=== PATIENT | female | born 1990 | race Caucasian/White ===

== ENCOUNTER → 2016-09-13 | Outpatient (CLI) | payer OTHER ==
[~2016-09-13] MED LIST: ALBUAER2 INH; DSWCR15 TOP; ETONMIS VAGRING; FLUT0.15 NAE; HYDR25CA PO; IPRASOL4 INH; LEVO-371 PO; OXYC-57 PO; PRD/1 PO; PRLSR20 PO; SULF1TAB92 PO; SYMIN/8045 INH; TRIA0.1O12 TOP; ZNTT/150 PO
[2016-09-13 18:36] LABS: HEMATOCRIT 38.6 % (37-47); MEAN CORPUSCULAR HEMOGLOBIN 30.5 pg (25-34); MEAN CORPUSCULAR HGB CONC 33.9 g/dl (32-36); MEAN PLATELET VOLUME 10.7 fL (7.4-10.4); PLATELET COUNT 378 K/uL (130-400); RED BLOOD COUNT 4.29 M/uL (4.2-5.4); WHITE BLOOD COUNT 6.87 K/uL (4.8-10.8)
[2016-09-13 18:50] LABS: POTASSIUM 3.8 mmol/L (3.5-5.1)
[2016-09-13 19:15] LABS: BASO % 0.4 %; BASO ABS # 0.03 K/uL (0-0.2); COMPLETE YES; EOS % 7.7 %; IG% 0.1 %; LYMPH % 51.1 %; LYMPH ABS # 3.51 K/uL (1.2-3.4); MONO % 9.3 %; NEUT % 31.4 %
== END | disposition home or self-care (01) ==
LOC: C.LAB 16:33
PROVIDERS: ATTEND Internal Medicine Pulmonary Disease
DX: J45.909 Unspecified asthma, uncomplicated (principal)

== ENCOUNTER → 2016-10-31 | Outpatient (CLI) | payer OTHER ==
--- NOTE | 2016-10-31 18:02 | DIAGNOSTIC IMAGING REPORT ---
SINUSES MIN 3 VIEWS ROUTINE CLINICAL HISTORY: J34.2,J32.1,J32.0,J31.0,J32.9,J32.3 chronic sinusitis COMPARISON STUDY: No previous studies for comparison. FINDINGS: There are bilateral maxillary sinus air-fluid levels. There is a right frontal sinus air-fluid level. Mucosal disease is also suspected within the ethmoid sinuses. IMPRESSION: Sinus disease with bilateral maxillary sinus and right frontal sinus air-fluid levels. Electronically signed by: Kory Olsen M.D. 10/31/2016 6:01 PM Dictated Date/Time: 10/31/2016 6:00 PM
== END | disposition home or self-care (01) ==
LOC: C.RAD 17:01
PROVIDERS: ATTEND Internal Medicine Pulmonary Disease
DX: J34.2 Deviated nasal septum (principal); J31.0 Chronic rhinitis; J32.0 Chronic maxillary sinusitis; J32.1 Chronic frontal sinusitis; J32.3 Chronic sphenoidal sinusitis; J32.9 Chronic sinusitis, unspecified

== ENCOUNTER → 2016-12-07 | Day surgery (SDC) | payer OTHER ==
[2016-11-30 08:01] VITALS: Ht 157.5 cm; Wt 50.0 kg
[~2016-12-07] VITALS: Ht 157.5 cm; Wt 50.0 kg
[~2016-12-07] MED LIST changes: +ALBUTEROL 0.083% NEBU SOLN 3 ML VIAL INH PRN; +ATROPINE SULFATE 0.1 MG/ML 5ML SYR IV PRN; +CEFAZOLIN 1000MG/55 ML D5W IV SCH; +DEXAMETHASONE SOD INJ 4 MG/ML VIAL ONE; -DSWCR15 TOP; -ETONMIS VAGRING; +EpHEDrine SULFATE INJ 50 MG/ML AMP IV PRN; +EpINEphrine INJ 1MG/ML AMP 1 MG/ML AMP ONE; +FENTANYL CITRATE INJ 50 MCG/1 ML 2 ML VIAL IV PRN; +FENTANYL CITRATE INJ 50 MCG/1 ML 2 ML VIAL ONE; +GLYCOPYRROLATE INJ 0.2 MG/ML VIAL ONE; -IPRASOL4 INH; +LACTATED RINGER'S 1000ML 1,000 ML IV SCH; -LEVO-371 PO; +LIDO 2%/EPINEPHRINE 1:100000 20 ML VIAL INFIL ONE; +LIDOCAINE 4% MPF SOAK 5 ML = 1 DOSE TOP ONE; +LIDOCAINE HCL 2% 2 ML VIAL (20MG/ML) ONE; +MIDAZOLAM HCL 1 MG/ML 2ML VIAL ONE; +NEOSTIGMINE METHYLSULFATE 5 MG/5 ML SYR ONE; +ONDANSETRON INJ 2 MG/ML 2 ML VIAL IV PRN; +ONDANSETRON INJ 2 MG/ML 2 ML VIAL ONE; +OXYCODONE/ACETAMINOPHEN 5-325 TAB PO PRN; +OXYMETAZOLINE HCL 0.05% NA SPR 15 ML BTL SCH; -PRD/1 PO; +PROMETHAZINE HCL INJ 6.25 MG in SODIUM CHLORIDE 0.9% 50ML 50 ML IV PRN; +PROPOFOL IV EMULSION 10 MG/ML 20 ML VIAL IV ONE; +SODIUM CHLORIDE 0.9% 1000ML 1,000 ML IV SCH; +SUCCINYLCHOLINE CHLORIDE 20 MG/ML 10 ML VIAL IV ONE; -SULF1TAB92 PO; -TRIA0.1O12 TOP
--- NOTE | 2016-12-07 00:26 | HISTORY & PHYSICAL EXAMINATION ---
DATE OF ADMISSION: 12/07/2016 DIAGNOSIS: Chronic sinusitis. HISTORY OF PRESENT ILLNESS: This 26-year-old lady presented with significant long history of recurrent and chronic sinusitis all winter because of the persistent symptoms and air-fluid level in the frontal, maxillary, and sphenoid sinuses. After failure to respond to antibiotic treatment, the patient requested definitive treatment. PAST MEDICAL HISTORY: Medical problems, asthma and migraine headaches. PREVIOUS SURGERIES: Tonsillectomy and previous sinus surgery. ALLERGIES: PROPYLENE GLYCOL CAUSES A RASH. MEDICATIONS: Include albuterol, Symbicort, hydroxyzine, omeprazole, ranitidine, DuoNeb, Xolair and Flonase. REVIEW OF SYSTEMS: Positive for acid reflux and asthma. PHYSICAL EXAMINATION: GENERAL: WN, WD female. VITAL SIGNS: 5 feet 2 inches, 115 pounds. HEAD: Normocephalic. EYES: Normal. EARS: Tympanic membranes intact. NOSE: Nasal passages show swollen nasal turbinates and some mucopurulent drainage. THROAT: Oropharynx normal. NECK: Supple. HEART: RRR. LUNGS: Clear. ABDOMEN: Soft. GENITOURINARY: Deferred. EXTREMITIES: Full range of motion. IMPRESSION: Chronic sinusitis. PLAN: For endoscopic sinus surgery. IVAD
--- NOTE | 2016-12-07 07:36 | History & Physical Bridge Note ---
H&P Re-Evaluation Bridge Note: I have examined the patient, reviewed the History & Physical and in the interval since the performance of the History & Physical I have noted the following changes of clinical significance: No changes noted
--- NOTE | 2016-12-07 09:08 | Discharge Instructions-SurgCtr ---
Discharge Instructions Date of Service Dec 07, 2016. Visit Reason for Visit: Chronic Sinusitis Discharge Discharge Diagnosis / Problem: same Discharge Goals Goal(s): Improve disease control Activity Recommendations Activity Limitations: resume your previous activity Anesthesia . Post Anesthesia Instructions: If you have had General Anesthesia or IV Sedation: * Do not drive today. * Resume driving when surgeon permits. * Do not make important decisions or sign legal documents today. * Call surgeon for: 1. Temperature elevations greater than 101 degrees F. 2. Uncontrollable pain. 3. Excessive bleeding. 4. Persistent nausea and vomiting. 5. Medication intolerance (nausea, vomiting or rash). * For nausea and vomiting use only clear liquids such as: tea, soda, bouillon until nausea subsides, then gradually increase diet as tolerated. * If you have any concerns or questions, call your surgeon's office. If physician is unavailable and it is an emergency, call 911 or go to the nearest emergency room. . Instructions / Follow-Up Instructions / Follow-Up ACTIVITY RECOMMENDATIONS: * Being up and around is good, but no strenuous activity, heavy lifting or physical exertion for one week. * Keep your head elevated 30 degrees when lying down or sleeping. * Do not blow your nose for 48 hours, sniff back instead. * Avoid hot showers. OVER THE COUNTER MEDICATIONS: * You may use Tylenol * Avoid aspirin or aspirin containing products, e.g. as they may increase bleeding. SPECIAL CARE INSTRUCTIONS: * Expect to have bloody drainage from your nose and/or down your throat for one to three days. Change drip pad as needed. * Begin irrigating your nose with saline solution today, at least six to ten times per day and sniff back to help remove old clots or crust. * You may experience nasal and facial congestion, pain and pressure, this is normal. * Please call with any significant and/or progressive pain, redness, swelling around the eyes, visual changes, fever of 101.5 degrees F, active bleeding or any problems or concerns. * If active bleeding occurs, spray the nose three times at one minute intervals with Afrin spray and call or cell phone: . If unable to reach the doctor, go to the nearest Emergency Department. Special Diet: * Avoid extremely hot fluids. FOLLOW UP VISIT: Follow-up Visit with Dr. Hampton If not already scheduled, please call to schedule. Diet Recommendations Home Diet: resume previous diet Pending Studies Studies pending at discharge: no Medical Emergencies . Who to Call and When: Medical Emergencies: If at any time you feel your situation is an emergency, please call 911 immediately. . Non-Emergent Contact Non-Emergency issues call your: Primary Care Provider . . "Provider Documentation" section prepared by Priti Hampton. [place] Drug Monitoring Program Search Results: no issues identified
[2016-12-07 12:04] VITALS: TEMP 37.2
--- NOTE | 2016-12-07 12:19 | OPERATIVE REPORT ---
DATE OF OPERATION: 12/07/2016 PREOPERATIVE DIAGNOSIS: Chronic sinusitis. POSTOPERATIVE DIAGNOSIS: Same plus polyposis. PROCEDURE: Right and left frontal, right and left sphenoid, right and left total ethmoid and right and left maxillary sinus antrostomy. SURGEON: Dr. Hampton. ANESTHESIA: General endotracheal. COMPLICATIONS: None. BLOOD LOSS: 60 mL. HISTORY OF PRESENT ILLNESS: This 26-year-old lady underwent endoscopic sinus surgery with septoplasty five years ago, but her symptoms continues to get worse, also her asthma has become progressively worse due to the recurrent and chronic sinus infections. OPERATION AND FINDINGS: DESCRIPTION OF PROCEDURE: The patient brought to the operating room and placed in supine position. General endotracheal anesthesia was induced, prepped, draped in usual sterile manner. Nose was decongested using cottonoids with topical solution of 4 mL of 4% Xylocaine mixed with 1 mL of epinephrine. Injection of 2% Xylocaine with 1:100,000 strength epinephrine was also used. The BrainLAB device was calibrated and used for the entire procedure. The right nasofrontal duct was cannulated with guidewire and dilated using the 6 mm balloon. The guidewire was left in place as a marker. Frontal sinusotomy was performed with the shaver coupled with the BrainLab device opening up the anterior wall and then the posterior wall of the agger nasi cell following the guidewire superiorly to widely open up the nasofrontal duct. The nasofrontal duct was then redilated widely opened to 6 mm and later in the procedure a small Propel stent was placed in the right nasofrontal duct. At this point, total ethmoidectomy was performed. There were adhesions covering the ostiomeatal complex and covering the maxillary sinus ostia. The shaver was used to remove the scar tissue and remove polyps. All the residual anterior ethmoid air cells were filled with polyps. These were all exonerated using the shaver and then all the posterior ethmoid air cells were also found to be filled with polyps. These were all opened up using the shaver removing the polyps. The skull base was identified superiorly and the lamina papyracea was identified laterally. These structures were followed anteriorly exonerating all the posterior and all the anterior ethmoid air cells up to the previously dilated nasofrontal duct. Maxillary sinus was opened by removing adhesions and polypoid mucosa covering the antrostomy opening. The sphenoid was also blocked with polyps. Because of the polyps from the superior turbinate blocking the sphenoid, the sphenoid was dilated using the 6 mm balloon. Again, with BrainLAB computer guidance and then the sphenoid was opened by removing the polypoid tissue and scar tissue at the inferior border of the superior turbinate at the anterior face of the sphenoid. The left frontal sinusotomy, total ethmoidectomy, maxillary sinus antrostomy and sphenoidotomy were performed in a similar manner. The Propel stents were placed. The mini stents were placed in the nasofrontal duct and the regular stents were placed in the middle meatus. The patient tolerated the procedure well and was taken to recovery area in satisfactory condition. I attest to the content of the Intraoperative Record and any orders documented therein. Any exceptio ns are noted below.
--- NOTE | 2016-12-07 12:23 | Anesthesia Progress Nt - [facility] ---
Anesthesia Post Op Note Date & Time Dec 07, 2016 at 12:22 Vital Signs Pain Intensity: 2 Vital Signs Past 12 Hours Date Time Temp Pulse Resp B/P Pulse Ox O2 Delivery O2 Flow Rate FiO2 12/07/16 12:04 37.2 107 16 121/82 98 Room Air 12/07/16 11:58 103 19 90 12/07/16 11:58 106 19 12/07/16 11:57 36.7 12/07/16 11:55 127/79 12/07/16 11:53 105 15 95 12/07/16 11:53 101 15 12/07/16 11:51 126/79 12/07/16 11:48 101 15 94 12/07/16 11:48 100 15 12/07/16 11:45 132/83 12/07/16 11:43 111 16 96 12/07/16 11:43 111 16 12/07/16 11:40 121/93 12/07/16 11:38 113 14 12/07/16 11:38 113 14 100 12/07/16 11:35 129/80 12/07/16 11:33 117 29 100 12/07/16 11:33 117 29 12/07/16 11:30 122/69 12/07/16 11:28 91 16 12/07/16 11:28 91 16 100 12/07/16 11:25 118/65 12/07/16 11:23 91 17 12/07/16 11:23 92 17 100 12/07/16 11:20 111/60 12/07/16 11:18 95 16 12/07/16 11:18 94 16 99 12/07/16 11:15 109/54 12/07/16 11:13 97 12/07/16 11:13 97 107/52 99 12/07/16 11:12 36.5 98 16 107/52 99 Humidified Oxygen 8 Diffusion Mask 12/07/16 08:08 36.5 96 16 114/77 98 Room Air Notes Mental Status: alert / awake / arousable, participated in evaluation Pt Amnestic to Procedure: Yes Nausea / Vomiting: adequately controlled Pain: adequately controlled Airway Patency, RR, SpO2: stable & adequate BP & HR: stable & adequate Hydration State: stable & adequate Anesthetic Complications: no major complications apparent
[2016-12-07 12:46] VITALS: BP 107/72; PULSE 97; O2SAT 97
== END | disposition home or self-care (01) ==
LOC: X.SURG 08:01
PROVIDERS: ATTEND Otolaryngology
DX: J32.9 Chronic sinusitis, unspecified (principal); J33.9 Nasal polyp, unspecified; J45.909 Unspecified asthma, uncomplicated; G43.909 Migraine, unspecified, not intractable, without status migrainosus; Z98.890 Other specified postprocedural states; Z88.8 Allergy status to other drugs, medicaments and biological substances

== ENCOUNTER → 2018-01-15 | Outpatient (CLI) | payer OTHER ==
[~2018-01-15] MED LIST changes: +ALBU18002; -ALBUTEROL 0.083% NEBU SOLN 3 ML VIAL INH PRN; -ATROPINE SULFATE 0.1 MG/ML 5ML SYR IV PRN; -CEFAZOLIN 1000MG/55 ML D5W IV SCH; -DEXAMETHASONE SOD INJ 4 MG/ML VIAL ONE; -EpHEDrine SULFATE INJ 50 MG/ML AMP IV PRN; -EpINEphrine INJ 1MG/ML AMP 1 MG/ML AMP ONE; -FENTANYL CITRATE INJ 50 MCG/1 ML 2 ML VIAL IV PRN; -FENTANYL CITRATE INJ 50 MCG/1 ML 2 ML VIAL ONE; -GLYCOPYRROLATE INJ 0.2 MG/ML VIAL ONE; -LACTATED RINGER'S 1000ML 1,000 ML IV SCH; +LEVO5TAB7 PO; -LIDO 2%/EPINEPHRINE 1:100000 20 ML VIAL INFIL ONE; -LIDOCAINE 4% MPF SOAK 5 ML = 1 DOSE TOP ONE; -LIDOCAINE HCL 2% 2 ML VIAL (20MG/ML) ONE; -MIDAZOLAM HCL 1 MG/ML 2ML VIAL ONE; -NEOSTIGMINE METHYLSULFATE 5 MG/5 ML SYR ONE; +ONDA4TAB10 SL; -ONDANSETRON INJ 2 MG/ML 2 ML VIAL IV PRN; -ONDANSETRON INJ 2 MG/ML 2 ML VIAL ONE; -OXYC-57 PO; -OXYCODONE/ACETAMINOPHEN 5-325 TAB PO PRN; -OXYMETAZOLINE HCL 0.05% NA SPR 15 ML BTL SCH; +PRENTAB26 PO; -PROMETHAZINE HCL INJ 6.25 MG in SODIUM CHLORIDE 0.9% 50ML 50 ML IV PRN; -PROPOFOL IV EMULSION 10 MG/ML 20 ML VIAL IV ONE; +RANI150T85 PO; -SODIUM CHLORIDE 0.9% 1000ML 1,000 ML IV SCH; -SUCCINYLCHOLINE CHLORIDE 20 MG/ML 10 ML VIAL IV ONE; -ZNTT/150 PO
== END | disposition home or self-care (01) ==
LOC: C.PAPS 11:31
PROVIDERS: ATTEND Obstetrics & Gynecology
DX: Z34.01 Encounter for supervision of normal first pregnancy, first trimester (principal)

== ENCOUNTER → 2018-01-15 | Outpatient (CLI) | payer OTHER ==
[~2018-01-15] MED LIST changes: -ALBU18002; -LEVO5TAB7 PO; -ONDA4TAB10 SL; -PRENTAB26 PO
[2018-01-15 10:15] LABS: BASO % 0.3 %; BASO ABS # 0.02 K/uL (0-0.2); EOS % 12.1 %; EOS ABS # 0.77 K/uL (0-0.5); HEMATOCRIT 37.7 % (37-47); IG# 0.01 K/uL (0.00-0.02); LYMPH % 31.7 %; LYMPH ABS # 2.02 K/uL (1.2-3.4); MEAN CELL VOLUME 90.2 fL (80-100); MEAN CORPUSCULAR HEMOGLOBIN 31.1 pg (25-34); MEAN CORPUSCULAR HGB CONC 34.5 g/dl (32-36); MEAN PLATELET VOLUME 10.6 fL (7.4-10.4); MONO % 8.8 %; MONO ABS # 0.56 K/uL (0.11-0.59); NEUT % 46.9 %; PLATELET COUNT 284 K/uL (130-400); RED CELL DISTRIBUTION WIDTH CV 13.3 % (11.5-14.5); WHITE BLOOD COUNT 6.38 K/uL (4.8-10.8)
== END | disposition home or self-care (01) ==
LOC: C.LAB1850 09:02
PROVIDERS: ATTEND Obstetrics & Gynecology
DX: Z34.01 Encounter for supervision of normal first pregnancy, first trimester (principal)

== ENCOUNTER 2018-01-20 07:54 | Emergency (ER) | payer OTHER ==
[~2018-01-20] VITALS: Ht 157.5 cm; Wt 52.0 kg
[2018-01-20 07:59] VITALS: TEMP 37.5; Ht 157.5 cm; Wt 52.0 kg
[2018-01-20] MEDS: SODIUM CHLORIDE 0.9% 1000ML 1,000 ML IV ONE ×2 (08:25→09:37)
[2018-01-20] MEDS ORDERED: SODIUM CHLORIDE 0.9% 1000ML 1,000 ML IV STA (08:25)
[2018-01-20] MEDS ORDERED: PRENTAB26 PO (08:26)
[2018-01-20] MEDS ORDERED: LEVO5TAB7 PO (08:26)
[2018-01-20] MEDS ORDERED: ALBU18002 (08:26)
--- NOTE | 2018-01-20 08:27 | EMERGENCY ROOM VISIT NOTE ---
History Report prepared by Marilyn: Jose Cruz Hagen Under the Supervision of: Dr. Shyam Stanley M.D. First contact with patient: 08:06 Chief Complaint: DIARRHEA Stated Complaint: SEVERE DIARRHEA,HEADACHE,BODY ACHES, 9WKS Nursing Triage Summary: pt here with diarrhea and nausea x several days. pt states increased fatigue. pt is 9 weeks . History of Present Illness The patient is a 27 year old female who presents to the Emergency Room with complaints of intermittent diarrhea that began 2 days ago. Patient states that she is 9 weeks . She states that this is her first . Patient states that she "can't drink or eat anything without having to run to the bathroom". She states that there was "maybe" blood in her diarrhea last night. She states that the diarrhea is "yellow" now. Patient states that she had an ultrasound of the baby last week that was "normal". Patient states that she also has nausea and "gagging". She adds that she is "achy all over" and has an intermittent headache. Pertinent past medical history includes asthma and allergies. Patient denies swelling in her legs and vaginal bleeding/discharge. She denies vomiting and shortness of breath. 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 She states that none of the kids she has worked with have been sick. Patient denies a history of C Diff. She denies any recent antibiotic use or exotic travel. Patient states that her health care assistant is Dr. Bae. She adds that her PCP was Dr. Dasilva at [facility] but he left so she is currently looking for another PCP. Patient is present with her boyfriend. Source of History: patient Onset: 2 days ago Position: other (Rectal) Timing: intermittent Modifying Factors (Worsening): eating, drinking Modifying Factors (Relieving): other (None) Associated Symptoms: + headache, + nausea, + hematochezia, No SOB, No vomiting Note: Patient states that she is "achy all over" and "gagging". Patient denies vaginal discharge and leg pain/swelling. Review of Systems See HPI for pertinent positives & negatives. A total of 10 systems reviewed and were otherwise negative. Past Medical & Surgical Medical Problems: (1) Asthma Surgical Problems: (1) History of tonsillectomy and adenoidectomy Old medical records were reviewed. Nurse's notes were reviewed and I agree with. Family History FH: heart disease FH: lung disease Hypertension Social History Smoking Status: Never Smoker Alcohol Use: occasionally Drug Use: none Marital Status: in relationship Housing Status: lives with family Occupation Status: employed Current/Historical Medications Scheduled Budesonide/Formoterol Fumarate (Symbicort 80/4.5 Inhaler), 1 PUFFS INH BID Fluticasone Propionate (Nasal) (Flonase Allergy Relief), 1 SPRAY RENATO BID Levocetirizine Dihydrochloride (Xyzal Allergy 24Hr), 5 MG PO DAILY Multivit/Min/Iron/Fol Ac/Pren ( Vitamin), 1 TAB PO DAILY Omeprazole (Prilosec), 20 MG PO QAM Ondasetron Odt (Zofran Odt), 4 MG SL Q6H Ranitidine (Zantac), 150 MG PO QAM Miscellaneous Medications Albuterol Sulfate (Proair Respiclick) Allergies Coded Allergies: Amoxicillin (Verified Allergy, Mild, rash, 01/20/18) Clavulanic Acid (Verified Allergy, Mild, rash, 01/20/18) Uncoded Allergies: ENVIRONMENTAL (Allergy, Mild, pollen, dogs, cats, trees, 11/30/16) PROLENGYLCOL (Adverse Reaction, Intermediate, flares up exzema, 11/30/16) Physical Exam Vital Signs Date Time Temp Pulse Resp B/P (MAP) Pulse Ox O2 Delivery O2 Flow Rate FiO2 01/20/18 11:23 108 20 100/62 100 Room Air 01/20/18 09:42 104/62 01/20/18 09:30 101 18 88/61 99 01/20/18 07:59 37.5 133 16 103/66 99 Room Air Physical Exam General: Non-ill appearing young female in no acute distress. HEENT: Normal cephalic atraumatic. Pupils are equal round and reactive to light. Extraocular movements are intact. Oropharynx is pink with moist mucous membranes. No swelling of the mouth lips or tongue. Neck: Supple with a midline trachea. No meningeal signs or stiffness, no JVD or bruits. No Stridor. Chest: Clear to auscultation bilaterally. No wheezes or rhonchi. No increased work of breathing. Heart: regular rate and rhythm. Abdomen: Soft nontender, nondistended without rebound guarding or rigidity. Extremities: No cyanosis clubbing or edema. No calf tenderness or assymetry Spine/Back. Non tender to palpation. No CVA tenderness Skin: Good turgor without rashes. Neurologic exam: Cranial nerves two through 12 are intact. Motor and sensation are intact and symmetrical throughout. Medical Decision & Procedures Laboratory Results 01/20/18 08:30 Red Blood Count 4.25, Mean Corpuscular Volume 88.7, Mean Corpuscular Hemoglobin 31.5, Mean Corpuscular Hemoglobin Concent 35.5, Mean Platelet Volume 10.0, Neutrophils (%) (Auto) 81.3, Lymphocytes (%) (Auto) 12.1, Monocytes (%) (Auto) 4.8, Eosinophils (%) (Auto) 1.5, Basophils (%) (Auto) 0.1, Neutrophils # (Auto) 7.13, Lymphocytes # (Auto) 1.06, Monocytes # (Auto) 0.42, Eosinophils # (Auto) 0.13, Basophils # (Auto) 0.01 01/20/18 08:30 Test 01/20/18 08:30 White Blood Count 8.77 K/uL (4.8-10.8) Red Blood Count 4.25 M/uL (4.2-5.4) Hemoglobin 13.4 g/dL (12.0-16.0) Hematocrit 37.7 % (37-47) Mean Corpuscular Volume 88.7 fL (80-100) Mean Corpuscular Hemoglobin 31.5 pg (25-34) Mean Corpuscular Hemoglobin Concent 35.5 g/dl (32-36) Platelet Count 224 K/uL (130-400) Mean Platelet Volume 10.0 fL (7.4-10.4) Neutrophils (%) (Auto) 81.3 % Lymphocytes (%) (Auto) 12.1 % Monocytes (%) (Auto) 4.8 % Eosinophils (%) (Auto) 1.5 % Basophils (%) (Auto) 0.1 % Neutrophils # (Auto) 7.13 K/uL (1.4-6.5) Lymphocytes # (Auto) 1.06 K/uL (1.2-3.4) Monocytes # (Auto) 0.42 K/uL (0.11-0.59) Eosinophils # (Auto) 0.13 K/uL (0-0.5) Basophils # (Auto) 0.01 K/uL (0-0.2) RDW Standard Deviation 43.4 fL (36.4-46.3) RDW Coefficient of Variation 13.2 % (11.5-14.5) Immature Granulocyte % (Auto) 0.2 % Immature Granulocyte # (Auto) 0.02 K/uL (0.00-0.02) Anion Gap 9.0 mmol/L (3-11) Est Creatinine Clear Calc Drug Dose 101.6 ml/min Estimated GFR () 141.6 Estimated GFR (Non- 122.2 BUN/Creatinine Ratio 9.2 (10-20) Calcium Level 8.4 mg/dl (8.5-10.1) Total Bilirubin 0.3 mg/dl (0.2-1) Direct Bilirubin < 0.1 mg/dl (0-0.2) Aspartate Amino Transf (AST/SGOT) 17 U/L (15-37) Alanine Aminotransferase (ALT/SGPT) 18 U/L (12-78) Alkaline Phosphatase 53 U/L (45-117) Total Protein 7.1 gm/dl (6.4-8.2) Albumin 3.4 gm/dl (3.4-5.0) Lipase 108 U/L (73-393) Laboratory studies as stated above per my review. Medications Administered Medications (Trade) Dose Ordered Sig/Garland Route Start Time Stop Time Status Last Admin Dose Admin Sodium Chloride 1,000 ml @ 999 mls/hr Q1H1M STAT IV 01/20/18 08:25 01/20/18 09:25 DC 01/20/18 08:38 999 MLS/HR Sodium Chloride 1,000 ml @ 200 mls/hr Q5H ONCE IV 01/20/18 08:25 01/20/18 11:37 DC 01/20/18 09:37 200 MLS/HR ED Course 0806: Past medical records reviewed. The patient was evaluated in room B3, and a complete history and physical examination were performed. 0825: Sodium Chloride 1000 ml @ 200 mls/hr IV and Sodium Chloride 1000 ml @ 999 mls/hr IV 0912: I reassessed the patient who is resting comfortably. 1032: I reassessed the patient who is resting comfortably and finishing up her fluids. 1057: Upon reevaluation, the patient is resting comfortably. I discussed the results and treatment plan with her. She verbalized agreement of the treatment plan. The patient was discharged home. Medical Decision Differentials include, but are not limited to; diarrhea, infection, related complication, and electrolyte or metabolic abnormality. This patient comes in as described above. She was placed in room B3. She is approximately 9 weeks and has had diarrhea for couple days. she also has body aches. She looks well on my exam and is nontoxic non-lethargic . she does have a headache but it is mild . she has nothing to suggest meningitis or significant neurologic disease. 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 No history of C. difficile. IV access was established, she was hydrated with IV normal saline and blood work and stool studies were ordered. She was reassessed frequently. She has no abdominal pain or gush of fluids or anything to suggest this is related. She did receive 2 L IV normal saline and is feeling significantly better. She has no white count or fever to suggest infection. No acute electrolyte or metabolic abnormalities. She has had a recent ultrasound which demonstrated an IUP. She has no urinary symptoms. She is nothing to suggest liver gallbladder pancreas disease. Her stool studies are mostly pending but C. difficile was negative. I think this most likely was a viral type illness. She should rest and drink plenty of fluids. Return if: Worsening of symptoms, any new problems or concerns. She can use Tylenol if needed for discomfort but do not exceed the [id number] recommended dosages. She can use Zofran if needed for nausea or vomiting. She should follow-up with her doctor in 1 to 2 days for recheck. She is happy the plan and discharged to home. Medication Reconcilliation Current Medication List: was personally reviewed by me Blood Pressure Screening Patient's blood pressure: Normal blood pressure Blood pressure disposition: Did not require urgent referral Impression Primary Impression: Diarrhea Additional Impressions: Viral illness Scribe Attestation The scribe's documentation has been prepared under my direction and personally reviewed by me in its entirety. I confirm that the note above accurately reflects all work, treatment, procedures, and medical decision making performed by me. Departure Information Dispostion Home / Self-Care Prescriptions Ondasetron Odt (ZOFRAN ODT) 4 Mg Tab 4 MG SL Q6H for Nausea, #15 TAB Prov: Shyam Stanley M.D. 01/20/18 Referrals No Doctor, Assigned (PCP) Forms HOME CARE DOCUMENTATION FORM, IMPORTANT VISIT INFORMATION, WORK / SCHOOL INSTRUCTIONS Patient Instructions My [facility] Additional Instructions Rest. Drink plenty of fluids. Return if: Worsening of symptoms, fever or chills, not tolerating fluids, any new problems or concerns May use [id number] Tylenol/acetaminophen if needed for pain. Do not take more than 2 regular strength pills every 6 hours May use Zofran 1 pill every 6 hours as needed for nausea or vomiting Follow-up with your doctor for recheck in 1-2 days Problem Qualifiers
[2018-01-20 08:48] LABS: BASO % 0.1 %; BASO ABS # 0.01 K/uL (0-0.2); EOS % 1.5 %; EOS ABS # 0.13 K/uL (0-0.5); HEMATOCRIT 37.7 % (37-47); HEMOGLOBIN 13.4 g/dL (12.0-16.0); IG# 0.02 K/uL (0.00-0.02); LYMPH % 12.1 %; LYMPH ABS # 1.06 K/uL (1.2-3.4); MEAN CELL VOLUME 88.7 fL (80-100); MEAN CORPUSCULAR HEMOGLOBIN 31.5 pg (25-34); MEAN CORPUSCULAR HGB CONC 35.5 g/dl (32-36); MONO % 4.8 %; MONO ABS # 0.42 K/uL (0.11-0.59); NEUT % 81.3 %; NEUT ABS # 7.13 K/uL (1.4-6.5); PLATELET COUNT 224 K/uL (130-400); RED CELL DISTRIBUTION WIDTH CV 13.2 % (11.5-14.5); RED CELL DISTRIBUTION WIDTH SD 43.4 fL (36.4-46.3); WHITE BLOOD COUNT 8.77 K/uL (4.8-10.8)
[2018-01-20 09:06] LABS: ALBUMIN 3.4 gm/dl (3.4-5.0); ALKALINE PHOSPHATASE 53 U/L (45-117); ALT/SGPT 18 U/L (12-78); AST/SGOT 17 U/L (15-37); BLOOD UREA NITROGEN 6 mg/dl (7-18); CALCIUM 8.4 mg/dl (8.5-10.1); CARBON DIOXIDE 24 mmol/L (21-32); CREATININE 0.67 mg/dl (0.60-1.20); GLUCOSE 88 mg/dl (70-99); LIPASE 108 U/L (73-393); POTASSIUM 3.4 mmol/L (3.5-5.1); SODIUM 134 mmol/L (136-145); TOTAL PROTEIN 7.1 gm/dl (6.4-8.2)
[2018-01-20] MEDS ORDERED: ONDA4TAB10 SL (10:58)
[2018-01-20 11:23] VITALS: BP 100/62; PULSE 108; O2SAT 100
== END 2018-01-20 11:26 | disposition home or self-care (01) ==
LOC: C.EDB 07:55
DX: O99.611 Diseases of the digestive system complicating pregnancy, first trimester (principal); R19.7 Diarrhea, unspecified; B34.9 Viral infection, unspecified

== ENCOUNTER 2021-03-07 07:30 | Inpatient (IN) ==
--- NOTE | 2021-02-10 12:10 | PAT Medication Instructions ---
Medication Instructions Date of Service February 10, 2021 Home Medications Medication Instructions Recorded famotidine 20 mg tablet 20 mg PO BID #60 tab 11/24/20 albuterol sulfate 90 mcg/actuation 2 puff INHALATION Q4 PRN #8 gm 01/12/21 aerosol inhaler fluticasone propionate [Flonase Allergy Relief] 1 spray INTRANASAL BID loratadine [Claritin] 10 mg PO DAILY ondansetron HCl [Zofran] 4 mg PO QID PRN prenat.vits,kalin,[id number] 1 tab PO DAILY famotidine 20 mg tablet 20 mg PO BID albuterol sulfate 90 mcg/actuation aerosol inhaler 2 puff INHALATION Q4 PRN albuterol sulfate 2.5 mg INH QID PRN budesonide [Pulmicort] 0.25 mg INHALATION BID PRN budesonide-formoterol [Symbicort] 2 puff INHALATION BID montelukast 10 mg PO HS valacyclovir [Valtrex] 2,000 mg PO BID PRN DO NOT take the morning of surgery loratadine [Claritin] 10 mg PO DAILY prenat.vits,kalin,vuy-[id number] 1 tab PO DAILY famotidine 20 mg tablet 20 mg PO BID Take morning of surgery With a small sip of water, OTHERWISE NOTHING TO EAT OR DRINK AFTER MIDNIGHT: fluticasone propionate [Flonase Allergy Relief] 1 spray INTRANASAL BID ondansetron HCl [Zofran] 4 mg PO QID PRN (if needed) famotidine 20 mg tablet 20 mg PO BID albuterol sulfate 90 mcg/actuation aerosol inhaler 2 puff INHALATION Q4 PRN (if needed) albuterol sulfate 2.5 mg INH QID PRN (if needed) budesonide [Pulmicort] 0.25 mg INHALATION BID PRN (if needed) budesonide-formoterol [Symbicort] 2 puff INHALATION BID valacyclovir [Valtrex] 2,000 mg PO BID PRN (if needed) Please bring inhaler with you to hospital day of surgery if possible Take evening before surgery fluticasone propionate [Flonase Allergy Relief] 1 spray INTRANASAL BID ondansetron HCl [Zofran] 4 mg PO QID PRN (if needed) famotidine 20 mg tablet 20 mg PO BID albuterol sulfate 90 mcg/actuation aerosol inhaler 2 puff INHALATION Q4 PRN (if needed) albuterol sulfate 2.5 mg INH QID PRN (if needed) budesonide [Pulmicort] 0.25 mg INHALATION BID PRN(if needed) budesonide-formoterol [Symbicort] 2 puff INHALATION BID montelukast 10 mg PO HS valacyclovir [Valtrex] 2,000 mg PO BID PRN (if needed) Other Notes If you have any questions please call us at [phone] or [phone] or [phone] or [phone]
--- NOTE | 2021-02-14 10:29 | Anesthesiology Consultation ---
Date of Service February 14, 2021 Assessment & Plan (1) Encounter for pre-operative examination: - COVID screening: Per assessment on 02/14: Travel screen- Drove to [place] 02/05 (beach, no large gatherings, wore mask in public). Patient not vaccinated. No f urther travel planned priot to c/s. No known COVID-19 positive contacts or current COVID-19 related symptoms. Surgeon arranging preop COVID testing. Awaiting results. - S/P (09/01/18) d/t non-reassuring heart rates: Dosed epidural at [facility] - Preop testing: Per surgeon's preop order, no preop testing to be done at [facility]. - Positioning: Patient reports significant right shoulder pain x1 year requiring physical therapy after 2018 . Suspected due to positioning during surgery. Patient requests caution with positioning for upcoming . Chart Review Chart Review: Acceptable Risk for Surgery and Patient seen in Pre Admission Testing Teaching & Discussion Pre-Anesthesia Teaching/Discussion Notes: Instructed NPO after midnight before surgery,except medications with 15 cc of water. Medication instructions provided according to the [facility] guidelines. History Surgery Operation Date: 03/07/21 07:30 Proposed Procedures p Section in - Josie Herrera DO Height/Weight Height: 5 ft 2 in Weight: 72.8 kg Allergies Allergy/AdvReac Type Severity Reaction Status Date / Time clavulanic acid Allergy Mild rash Verified 02/07/21 14:47 ENVIRONMENTAL Allergy Mild pollen, Uncoded 02/07/21 14:47 dogs, cats, trees PROLENGYLCOL AdvReac Intermediate flares up Uncoded 02/07/21 14:47 exzema Medications Home Medications Medication Instructions Recorded Confirmed Last Taken fluticasone propionate [Flonase 1 spray INTRANASAL BID #0 11/30/16 02/07/21 08/20/18 08:00 Allergy Relief] loratadine [Claritin] 10 mg PO DAILY 08/21/18 02/07/21 08/20/18 08:00 ondansetron HCl [Zofran] 4 mg PO QID PRN 08/22/18 02/07/21 Unknown prenat.vits,kalin,fbb-syyo-hhfoi 1 tab PO DAILY 07/23/20 02/07/21 Unknown famotidine 20 mg tablet 20 mg PO BID #60 tab 11/24/20 02/07/21 Unknown albuterol sulfate 90 mcg/actuation 2 puff INHALATION Q4 PRN #8 gm 01/12/21 02/07/21 Unknown aerosol inhaler albuterol sulfate 2.5 mg INH QID PRN 02/07/21 02/07/21 Unknown budesonide [Pulmicort] 0.25 mg INHALATION BID PRN 02/07/21 02/07/21 Unknown budesonide-formoterol [Symbicort] 2 puff INHALATION BID 02/07/21 02/07/21 Unknown montelukast 10 mg PO HS 02/07/21 02/07/21 Unknown valacyclovir [Valtrex] 2,000 mg PO BID PRN 02/07/21 02/07/21 Unknown Past Medical History Medical History Asthma stable GERD (gastroesophageal reflux disease) worsened with preganncy Hx of migraines Ovarian cyst hx Exercise / Class Metabolic Activity III < 4 Walking/Shop/Light housework (one flight of stairs (no chest pain, + sob)) Past Family History Family History Grandmother (Maternal) Depression Anxiety Factor V Leiden Hypertension Osteoporosis Grandmother (Paternal) Colorectal cancer Mother Factor V Leiden Thyroid disease Grandfather (Maternal) Hypertension Hypercholesteremia Past Surgical History Surgical History H/O endoscopic sinus surgery Multiple H/O tooth extraction History of myringotomy ear tubes placed and removed History of tonsillectomy and adenoidectomy Hx of section c/s (09/01/18) d/t non-reassuring heart rates: Dosed epidural Past Anesthesia History No Hx of Anesthesia Complications and No Family Hx of Anesthesia Complications History of PONV No Hx of PONV and No Hx of Motion Sickness Social History Smoking Status: Never smoker Do You Dip or Chew Tobacco: No Hx Alcohol Use: No Hx Substance Use: No substance use type: does not use Review of Systems Asthma/breathing stable. No snoring. Patient denies chest pain, shortness of breath, fever, chills, cough, wheezing, palpitations. Physical Exam Vital Signs VITALS BP 101/65 P 89 TEMP 97.9 SP02 97%RA RESP 16 PHYSICAL Full cervical extension range of motion. Full TMJ range of motion. TMD 3.5 finger breaths Mallampati Score 1 Dentition: intact, + crown (molar) Lungs: clear throughout to auscultation Cardiac: regular rate and rhythm, no murmurs noted Spine: normal Extremities: no edema
--- NOTE | 2021-03-04 08:29 | History & Physical Report ---
Date of Service March 04, 2021 Assessment & Plan (1) Previous delivery affecting , antepartum: Plan for repeat section. History of Present Illness Chief Complaint: repeat section Primary Care Provider: NO PCP 30yo with EDC 03/12/21. Scheduled for repeat section. complicated by: IUGR - resolved 02/14 at 36 wks *NSTs 2x/wk *DVP/UAD wkly *Growth US q 4wks *Delivery @ 39wks (unless reverse flow) Prior Section affecting - - plans RCS, schedule @ 28wk C/S SCHEDULED FOR 03/07/[address] DRUMMOND. PAT APPOINTMENT SCHEDULED FOR 02/14/21 AT 10:30AM NEEDS COVID TEST ON 03/01/21- ORDER PLACED HSV Valtrex @ 36wk. Severe asthma - sees Solic monthly, was monitored with monthly growth scans in prior due to multiple medications with frequent poor resp function, and did find IUGR. Asks at 20wk with this if we are planning to repeat that increased testing. To HROBM to discuss. Also, NO HEMABATE. *begin monthly growth us's @ 24wks. Allergies Allergy/AdvReac Type Severity Reaction Status Date / Time clavulanic acid Allergy Mild rash Verified 02/28/21 15:28 ENVIRONMENTAL Allergy Mild pollen, Uncoded 02/28/21 15:28 dogs, cats, trees PROLENGYLCOL AdvReac Intermediate flares up Uncoded 02/28/21 15:28 exzema Home Medications Medication Instructions Recorded Confirmed Type fluticasone propionate [Flonase 1 spray INTRANASAL BID #0 11/30/16 02/28/21 History Allergy Relief] loratadine [Claritin] 10 mg PO DAILY 08/21/18 02/28/21 History ondansetron HCl [Zofran] 4 mg PO QID PRN 08/22/18 02/28/21 History prenat.vits,kalin,luq-moha-erani 1 tab PO DAILY 07/23/20 02/28/21 History famotidine 20 mg tablet 20 mg PO BID #60 tab 11/24/20 02/28/21 Rx albuterol sulfate 90 mcg/actuation 2 puff INHALATION Q4 PRN #8 gm 01/12/21 02/28/21 Rx aerosol inhaler albuterol sulfate 2.5 mg INH QID PRN 02/07/21 02/28/21 History budesonide [Pulmicort] 0.25 mg INHALATION BID PRN 02/07/21 02/28/21 History budesonide-formoterol [Symbicort] 2 puff INHALATION BID 02/07/21 02/28/21 History montelukast 10 mg PO HS 02/07/21 02/28/21 History valacyclovir [Valtrex] 2,000 mg PO BID PRN 02/07/21 02/28/21 History omeprazole 40 mg capsule,delayed 40 mg PO DAILY PRN #30 cap 02/14/21 02/28/21 Rx release valacyclovir 500 mg tablet 500 mg PO BID 28 Days #56 tab 02/14/21 02/28/21 Rx Patient History Medical History Asthma GERD (gastroesophageal reflux disease) Hx of migraines Ovarian cyst Surgical History H/O endoscopic sinus surgery H/O tooth extraction History of myringotomy History of tonsillectomy and adenoidectomy Hx of section Family History Grandmother (Maternal) Depression Anxiety Factor V Leiden Hypertension Osteoporosis Grandmother (Paternal) Colorectal cancer Mother Factor V Leiden Thyroid disease Grandfather (Maternal) Hypertension Hypercholesteremia Social History Smoking Status: Never smoker Second Hand Exposure: No; Hx Alcohol Use: No Hx Substance Use: No Preferred Language: Thai Communication Ability: Effective 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 Required: No Beliefs That Will Affect Care: None marital status: marital status details: Sotero (32) [phone] Current Living Situation: Spouse Current Living Situation Comment: lives with spouse and children current occupational status: employed 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 No s/s chorio or abruption. Skin: no rashes, warm and dry Psychiatric: A+Ox3, euthymic affect Coding Level of Care Code None Diagnoses Previous delivery affecting , antepartum O34.219
[~2021-03-07 07:30] MED LIST changes: -ALBUAER2 INH; +CITRIC ACID/SODIUM CITRATE 15 ML UDC PO SCH; -FLUT0.15 NAE; -HYDR25CA PO; -PRLSR20 PO; -RANI150T85 PO; -SYMIN/8045 INH; +ceFAZolin 2,000 MG in SYRINGE 0 ML IV SCH
[2021-03-07] MEDS ORDERED: LACTATED RINGER'S 1,000 ML IV SCH ×2 (08:45→12:24)
[2021-03-07 08:46] LABS: Hematocrit (blood only) 36.3 % (37-47); Hemoglobin 12.2 g/dL (12.0-16.0); Mean Corpuscular Hemoglobin 30.9 pg (25-34); Mean Corpuscular Hgb Conc 33.6 g/dL (32-36); Mean Corpuscular Volume 91.9 fL (80-100); Mean Platelet Volume 11.4 fL (7.4-10.4); Platelet Count 213 K/uL (130-400); RDW Coefficient of Variation 13.8 % (11.5-14.5); Red Blood Count 3.95 M/uL (4.2-5.4); White Blood Count 9.18 K/uL (4.8-10.8)
[2021-03-07] MEDS ORDERED: fentaNYL citrate 100 MCG/2 ML VIAL ONE (09:00)
[2021-03-07] MEDS ORDERED: MoRPHine SULFATE PF 1 MG/ML 10 ML AMP/VIAL ONE (09:00)
--- NOTE | 2021-03-07 09:04 | History & Physical Bridge Note ---
Date of Service March 07, 2021 History & Physical Bridge Note I have examined the patient, reviewed the History & Physical and in the interval since the performance of the History & Physical I have noted the following changes of clinical significance: no changes noted
[2021-03-07] MEDS ORDERED: ePHEDrine sulfate 50 MG/ML AMP IV PRN (10:26)
[2021-03-07] MEDS ORDERED: KETOROLAC 30 MG/ML VIAL IV PRN (10:26)
[2021-03-07] MEDS ORDERED: ONDANSETRON INJ 2 MG/ML 2 ML VIAL IV PRN ×2 (10:26→12:24)
[2021-03-07] MEDS ORDERED: PROMETHAZINE HCL 6.25 MG in SODIUM CHLORIDE 0.9% 50 ML IV PRN (10:26)
[2021-03-07] MEDS ORDERED: MoRPHine SULFATE 2 MG/ML CARP IV PRN (10:26)
[2021-03-07] MEDS ORDERED: MEPERIDINE HCL 25 MG/ML CARP/VIAL IV PRN (10:26)
[2021-03-07] MEDS ORDERED: LACTATED RINGER'S 500 ML IV PRN (10:26)
[2021-03-07] MEDS ORDERED: NALOXONE HCL 0.08 MG in SYRINGE 1.8 ML IV PRN (10:26)
[2021-03-07] MEDS ORDERED: HYDROmorphone INJ 0.5 MG/0.5 ML SYR IV PRN (10:26)
[2021-03-07] MEDS ORDERED: NALOXONE HCL 1 MG in SODIUM CHLORIDE 0.9% 1000ML 1,000 ML IV PRN (10:26)
[2021-03-07] MEDS ORDERED: NALOXONE HCL 0.4 MG/1 ML VIAL/CARP IV PRN (10:26)
[2021-03-07] MEDS ORDERED: MoRPHine SULFATE PF 1 MG/ML 10 ML AMP/VIAL INT SPINAL ONE (10:26)
[2021-03-07] MEDS ORDERED: NO NARCOTICS OR SEDATIVES SCH (10:30)
[2021-03-07] MEDS ORDERED: DC INTRASPINAL MORPHINE SCH (10:30)
[2021-03-07] MEDS ORDERED: SODIUM CHLORIDE 0.9% 1000ML 1,000 ML IV SCH (10:30)
[2021-03-07] MEDS ORDERED: PHENYLEPHRINE 100MCG/ML 5ML SYR ONE (10:49)
[2021-03-07] MEDS ORDERED: KETOROLAC 30 MG/ML VIAL ONE (10:49)
[2021-03-07] MEDS ORDERED: OXYTOCIN 10 UNITS/ML VIAL ONE (10:49)
[2021-03-07] MEDS ORDERED: ONDANSETRON INJ 2 MG/ML 2 ML VIAL ONE (10:49)
--- NOTE | 2021-03-07 11:44 | Operative Report ---
PG Post Operative Report Pre & Post Diagnosis Operation Date: 03/07/21 10:15 Pre-Op Diagnosis: history of x1; asthma Post-Op Diagnosis: history of x1; asthma I identified the patient and participated in the time-out.: Yes Procedure Operation Date: 03/07/21 10:15 Actual Procedures p repeat low transverse Section(Not Applicable) - Josie Herrera DO Surgeon Josie Herrera DO Ticket Collector Que Hadley MD Estimated Blood Loss 500 Findings Consistent with Post-Op Diagnosis Viable female , Apgars 8/9. Weight pending, please see nursery records. Specimens placenta, cord blood, cord gas Drains muniz clear yellow Anesthesia Type Spinal Complications none Disposition Accompanied Patient To Recovery: Yes Disposition: L&D Indications 30yo @ 39 10/10, desires repeat . Description of Procedure The patient was seen in her labor and delivery room, risks benefits and alternatives to surgery were reviewed. Informed consent obtained. Questions were answered. She was taken to the operating room, spinal anesthesia was administered. She was then prepared and draped in the usual sterile fashion in the supine position with a leftward tilt. Timeout was confirmed. A Pfannenstiel skin incision was made through the prior incision with a scalpel, and carried through to the underlying layer of fascia. Fascia was nicked at midline, and this incision was extended bilaterally. The superior aspect of the fascial incision was grasped with Leann clamps x2, elevated off the underlying rectus abdominis muscles, and dissected sharply and bluntly. In similar fashion, the inferior aspect of the fascial incision was dissected. The rectus abdominis muscles were , and the peritoneum was entered bluntly digitally. This was extended bilaterally. The bladder flap was taken down carefully using Metzenbaum scissors. Using a new scalpel, a low transverse uterine incision was created. Clear amniotic fluid noted. The infant was delivered from a cephalic presentation. The head delivered, followed by shoulders and body. Nuchal cord x 1, easily reduced. Spontaneous cry on the field. The cord was doubly clamped and cut, and the infant was handed off to the waiting injection molding supervisor. A segment was retained for cord gases. Cord blood was obtained. The placenta was delivered spontaneously intact. The uterus was exteriorized, and cleared of all clots and debris. The hysterotomy incision was reapproximated using 0 Vicryl in a running locked stitch. A second layer of the same suture was used to imbricate the incision. Posterior uterus was evaluated and normal. The uterus was returned to the abdomen, and gutters were cleared of clots and debris. Excellent hemostasis was observed. The fascial incision was reapproximated using 0 Vicryl in a running stitch. The subcutaneous tissue was irrigated, and reapproximated using 2-0 plain gut in a running stitch. The skin was reapproximated using 4-0 Vicryl in a running subcuticular stitch. Steri-Strips and a bandage were applied. The patient tolerated the procedure well, and will be taken to the recovery area in stable and good condition. I attest to the content of the Intraoperative Record and any orders documented therein. Any exceptions are noted below.
[2021-03-07] MEDS ORDERED: ALBUTEROL 0.083% NEBU SOLN 3 ML VIAL INH PRN (12:24)
[2021-03-07] MEDS ORDERED: HYDROCORTISONE ACETATE 25 MG SUPP PR PRN (12:24)
[2021-03-07] MEDS ORDERED: PROMETHAZINE HCL 25 MG in SODIUM CHLORIDE 0.9% 50 ML IV PRN (12:24)
[2021-03-07] MEDS ORDERED: ALBUTEROL HFA 8 GM INHALER INH PRN (12:24)
[2021-03-07] MEDS ORDERED: BENZOCAINE 20% AER SPR 82.5 GM CAN EXT PRN (12:24)
[2021-03-07] MEDS ORDERED: SUPERCREAM 0.870% 15 GM JAR EXT PRN (12:24)
[2021-03-07] MEDS ORDERED: MAGNESIUM HYDROXIDE SUSP 30 ML UDC PO PRN (12:24)
[2021-03-07] MEDS ORDERED: DIPHTHERIA/TETANUS/PERTUSSIS 0.5 ML SYR/VIAL IM ONE (12:24)
[2021-03-07] MEDS ORDERED: SENNA 8.6 MG TAB PO PRN (12:24)
[2021-03-07] MEDS: diphenhydrAMINE 50 MG/ML VIAL IV PRN ×2 (12:26→22:34)
[2021-03-07] MEDS ORDERED: BUDESONIDE 0.25 MG/2 ML VIAL (PULMICORT) INH PRN (12:43)
[2021-03-07] MEDS ORDERED: LACTATED RINGER'S 500 ML IV ONE ×2 (12:48→15:13)
[2021-03-07] MEDS: OXYTOCIN 20 UNITS in LACTATED RINGER'S 1,000 ML IV SCH ×2 (13:46→22:50)
--- NOTE | 2021-03-07 13:55 | Anesthesiology Progress Note ---
Date of Service March 07, 2021 Anesthesia Post Procedure Vital Signs Vital Signs: Temp Pulse Resp BP Pulse Ox 03/07/21 13:50 81 97 03/07/21 13:45 69 97 03/07/21 13:42 67 98/52 L 03/07/21 13:40 80 98 03/07/21 13:35 74 98 03/07/21 13:32 75 101/59 L 03/07/21 13:30 63 98 03/07/21 13:25 70 90/51 L 98 03/07/21 13:22 65 87/52 L 03/07/21 13:20 77 98 03/07/21 13:15 82 98 03/07/21 13:13 70 95/50 L 03/07/21 13:12 36.1 C L 73 18 89/52 L 03/07/21 13:10 66 99 03/07/21 13:05 66 97 03/07/21 13:02 76 107/57 L 03/07/21 13:00 68 98 03/07/21 12:55 79 97 03/07/21 12:52 75 90/52 L 03/07/21 12:50 80 96 03/07/21 12:45 81 98 03/07/21 12:42 78 16 97/63 L 03/07/21 12:40 71 95 03/07/21 12:35 74 97 03/07/21 12:32 81 18 99/63 L 93 03/07/21 12:30 81 99 03/07/21 12:25 77 96 03/07/21 12:22 72 18 92/56 L 03/07/21 12:20 81 97 03/07/21 12:15 79 97 03/07/21 12:12 67 18 90/54 L 03/07/21 12:10 83 97 03/07/21 12:05 76 97 03/07/21 12:02 83 16 96/56 L 03/07/21 12:00 81 97 03/07/21 11:55 87 98 03/07/21 11:52 81 18 91/52 L 03/07/21 11:50 103 H 99 03/07/21 11:45 80 97 03/07/21 11:41 36.6 C 77 14 93/53 L 03/07/21 11:40 83 96 03/07/21 08:51 86 110/66 03/07/21 08:50 36.7 C 18 Pain Intensity Lower Abdomen: Pain Intensity: 2 Transfer of Care Handoff Completed per policy Notes Mental Status: alert / awake / arousable Nausea / Vomiting: adequately controlled Pain: adequately controlled Airway Patency, RR, SpO2: stable & adequate BP & HR: stable & adequate Hydration State: stable & adequate Anesthetic Complications: no major complications apparent
[2021-03-07] MEDS ORDERED: NALBUPHINE HCL INJ 10 MG/ML AMP IV ONE (14:15)
[2021-03-07] MEDS: SIMETHICONE 80 MG CHEW PO SCH ×2 (14:26→21:16)
[2021-03-07 15:45] LABS: Hematocrit (blood only) 34.4 % (37-47); Hemoglobin 11.7 g/dL (12.0-16.0)
[2021-03-07] MEDS ORDERED: PANTOprazole 40 MG TAB PO PRN (20:19)
[2021-03-07] MEDS: FLUTICASONE PROPIONATE NA SPR 16 GM BTL SCH (21:16)
[2021-03-07] MEDS: DOCUSATE SODIUM 100 MG CAP PO SCH (21:16)
[2021-03-07] MEDS: LORATADINE 10 MG TAB PO SCH (21:16)
[2021-03-07] MEDS: MONTELUKAST SODIUM 10 MG TABLET PO SCH (21:16)
[2021-03-07] MEDS: FAMOTIDINE 20 MG TAB PO SCH (21:17)
[2021-03-08] MEDS ORDERED: diphenhydrAMINE 50 MG/ML VIAL IV PRN (04:26)
[2021-03-08] MEDS ORDERED: KETOROLAC 30 MG/ML VIAL IV PRN (04:26)
[2021-03-08] MEDS ORDERED: diphenhydrAMINE Capsule 25 MG CAP PO PRN (04:26)
[2021-03-08] MEDS: IBUPROFEN 600 MG TAB PO PRN ×4 (05:01→20:47)
[2021-03-08] MEDS: oxyCODONE/ACETAMINOPHEN 5mg/325mg TAB PO PRN ×4 (05:01→20:47)
--- NOTE | 2021-03-08 06:23 | Obstetrical Progress Note ---
Date of Service March 08, 2021 Assessment & Plan (1) S/P section: POD#1 doing well. Continue routine postop care. Subjective Ambulation: ambulating normally Voiding: no voiding problems Diet Tolerance:: regular diet Lochia:: Moderate Review of Systems All systems reviewed & are unremarkable except as noted in HPI & below Physical Exam Incision CDI Constitutional WD/WN, vitals as above no acute distress Respiratory normal respiratory effort Cardiovascular Rate/Rhythm: regular rate and regular rhythm Gastrointestinal (Abdomen) Inspection/Auscultation: abdomen normal to inspection; abdomen not distended Percussion/Palpation: abdomen soft Genitourinary OB Exam Abdomen: + fundal height Fundus: + firm; not tender Results & Data ([facility]) Vital Signs (Past 12 Hours) Vital Signs Temp Pulse Resp BP Pulse Ox 03/08/21 04:30 18 96 03/08/21 03:50 18 96 03/08/21 03:27 36.6 C 74 16 94/65 L 98 03/08/21 02:25 16 95 03/08/21 01:10 16 95 03/08/21 00:35 16 94 03/07/21 23:00 18 97 03/07/21 22:49 36.7 C 90 16 103/66 98 03/07/21 22:15 18 97 03/07/21 21:05 18 98 03/07/21 20:25 18 98 03/07/21 19:40 37 C 79 18 106/63 98 03/07/21 19:10 18 98 03/07/21 18:30 18 99
[2021-03-08 06:26] LABS: Basophils # (auto) 0.01 K/uL (0-0.2); Basophils % (auto) 0.1 %; Eosinophils # (auto) 0.31 K/uL (0-0.5); Eosinophils % (auto) 3.5 %; Hematocrit (blood only) 32.8 % (37-47); Hemoglobin 10.9 g/dL (12.0-16.0); Immature Granulocytes # (auto) 0.04 K/uL (0.00-0.02); Immature Granulocytes % (auto) 0.4 %; Lymphocytes # (auto) 1.64 K/uL (1.2-3.4); Lymphocytes % (auto) 18.4 %; Mean Corpuscular Hgb Conc 33.2 g/dL (32-36); Mean Corpuscular Volume 93.2 fL (80-100); Mean Platelet Volume 11.1 fL (7.4-10.4); Monocytes # (auto) 0.97 K/uL (0.11-0.59); Monocytes % (auto) 10.9 %; Neutrophils # (auto) 5.93 K/uL (1.4-6.5); Neutrophils % (auto) 66.7 %; Platelet Count 179 K/uL (130-400); RDW Coefficient of Variation 14.1 % (11.5-14.5); RDW Standard Deviation 48.1 fL (36.4-46.3); Red Blood Count 3.52 M/uL (4.2-5.4)
[2021-03-08] MEDS: FERROUS SULFATE 325 MG TAB PO SCH (08:01)
[2021-03-08] MEDS: PRENATAL VITAMIN 1 TAB PO SCH (08:01)
[2021-03-08] MEDS: DOCUSATE SODIUM 100 MG CAP PO SCH ×2 (08:01→20:46)
[2021-03-08] MEDS: FAMOTIDINE 20 MG TAB PO SCH ×2 (08:01→20:46)
[2021-03-08] MEDS: FLUTICASONE PROPIONATE NA SPR 16 GM BTL SCH ×2 (08:02→20:46)
[2021-03-08] MEDS: SIMETHICONE 80 MG CHEW PO SCH ×4 (08:32→20:45)
[2021-03-08] MEDS ORDERED: FLUTICASONE/VILANTEROL 200/25MCG 14 PUFFS/INHALER INH SCH (09:00)
[2021-03-08] MEDS ORDERED: bisacodyL 5 MG TABEC PO SCH (20:00)
[2021-03-08] MEDS: BUDESONIDE/FORMOTEROL FUMARATE 160/4.5 60 PUFFS/INHALER INH SCH (20:45)
[2021-03-08] MEDS: MONTELUKAST SODIUM 10 MG TABLET PO SCH (20:46)
[2021-03-09] MEDS: oxyCODONE/ACETAMINOPHEN 5mg/325mg TAB PO PRN ×2 (03:07→08:32)
[2021-03-09] MEDS: IBUPROFEN 600 MG TAB PO PRN ×2 (03:08→08:31)
[2021-03-09 06:25] LABS: Hematocrit (blood only) 31.5 % (37-47); Hemoglobin 10.2 g/dL (12.0-16.0)
--- NOTE | 2021-03-09 06:59 | Obstetrical Progress Note ---
Date of Service March 09, 2021 Assessment & Plan (1) S/P section: Postoperative from section patient meets discharge criteria as she is ambulating well tolerating an oral diet has minimal bleeding and no extremity pain. Discharge instructions were reviewed and prescriptions were sent to her pharmacy of choice patient advised to call with any concerns and follow-up in the office discussed Subjective Ambulation: ambulating normally Voiding: no voiding problems Diet Tolerance:: regular diet Lochia:: Small Feeding Type:: bottle feeding Physical Exam ext neg Results & Data ([facility]) Vital Signs (Past 12 Hours) Vital Signs Temp Pulse Resp BP Pulse Ox 03/08/21 23:20 98.2 F 80 16 97/61 L 97
[2021-03-09] MEDS: BUDESONIDE/FORMOTEROL FUMARATE 160/4.5 60 PUFFS/INHALER INH SCH (07:29)
[2021-03-09] MEDS: SIMETHICONE 80 MG CHEW PO SCH (07:29)
[2021-03-09] MEDS: PRENATAL VITAMIN 1 TAB PO SCH (07:29)
[2021-03-09] MEDS: DOCUSATE SODIUM 100 MG CAP PO SCH (07:29)
[2021-03-09] MEDS: LORATADINE 10 MG TAB PO SCH (08:31)
[2021-03-09] MEDS: FLUTICASONE PROPIONATE NA SPR 16 GM BTL SCH (08:31)
[2021-03-09] MEDS: FAMOTIDINE 20 MG TAB PO SCH (08:31)
[2021-03-09] MEDS: FERROUS SULFATE 325 MG TAB PO SCH (11:13)
[2021-03-09] MEDS ORDERED: bisacodyL 10 MG SUPP PR PRN (11:39)
--- NOTE | 2021-03-17 17:28 | Discharge Summary ---
Date of Service March 17, 2021 Admission HPI Per Admitting Provider 30yo with EDC 03/12/21. Scheduled for repeat section. complicated by: IUGR - resolved 02/14 at 36 wks *NSTs 2x/wk *DVP/UAD wkly *Growth US q 4wks *Delivery @ 39wks (unless reverse flow) Prior Section affecting - - plans RCS, schedule @ 28wk C/S SCHEDULED FOR 03/07/[address] HERRERA. PAT APPOINTMENT SCHEDULED FOR 02/14/21 AT 10:30AM NEEDS COVID TEST ON 03/01/21- ORDER PLACED HSV Valtrex @ 36wk. Severe asthma - sees Solic monthly, was monitored with monthly growth scans in prior due to multiple medications with frequent poor resp function, and did find IUGR. Asks at 20wk with this if we are planning to repeat that increased testing. To HROBM to discuss. Also, NO HEMABATE. *begin monthly growth us's @ 24wks. Admission Exam (Per Admitting) Constitutional WD/WN, vitals as above no acute distress Respiratory normal respiratory effort, lungs clear to auscultation normal respiratory effort; no respiratory distress Cardiovascular Rate/Rhythm: regular rate and regular rhythm Gastrointestinal (Abdomen) Inspection/Auscultation: abdomen normal to inspection; abdomen not distended Percussion/Palpation: abdomen soft; abdomen nontender Skin no rashes, warm and dry Psychiatric A+Ox3, euthymic affect Genitourinary OB Exam Abdomen: + fundal height Discharge Data Consultations 03/07/21 08:31 Consult Anesthesiology Stat Procedures Performed Operation Date: 03/07/21 10:15 Actual Procedures p repeat low transverse Section(Not Applicable) - Josie Herrera DO Hospital Course (1) S/P section: Admitted for scheduled term repeat section. Unremarkable recove ry. Discharged home POD#2. Followup in office in 6w. Coding Level of Care Code None Diagnoses S/P section Z98.891
== END 2021-03-09 11:50 | disposition home or self-care (01) | DRG 787 ==
LOC: EDSTATUS 07:30 → 4S1 08:28 → 4S2 15:38

== ENCOUNTER 2023-06-15 07:29 | Inpatient (IN) ==
--- NOTE | 2023-06-07 11:42 | Anesthesiology Consultation ---
Date of Service June 07, 2023 Assessment & Plan Chart Review Chart Review: Patient NOT seen in Pre Admission Testing, Acceptable Risk for Labor Epidural and entry level drafter initiated SAB for repeat C/S 03/07/21: L3/4 x 1 attempt without issue -Pt presented to [facility] ED 06/02/23 c/o SOB. 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 Pt f/u with Pulm 06/06/23 who attributed her sx to crowding of lungs from uterus and asthma. "If ECHO is normal today, she can proceed on with her planned C- section a week from Sunday." ECHO 06/06/23 was WNL. Repeat LE Doppler showed minimal residual thrombus at the site of the previously noted thrombus (R great sapheous vein/common femoral vein). No superficial or deep venous thrombus seen. -Pt also following with hematology 2/2 anemia and is receiving iron infusions. CBC to be checked AM of C/S. Infectious Disease screening: Per PAT nursing assessment on 06/07/23, No known infectious disease contacts in past 10 days or current infectious disease symptoms. No recent travel outside the country. History Surgery Operation Date: 06/15/23 07:30 Proposed Procedures p Section (Deliery of Baby Through Abdomina) - Arelis Thompson MD Height/Weight Height: 5 ft 2 in Weight: 78.018 kg Allergies Allergy/AdvReac Type Severity Reaction Status Date / Time amoxicillin [From Augmentin] Allergy Unknown Rash - see Verified 06/07/23 11:04 notes below clavulanic acid Allergy Unknown rash Verified 06/07/23 11:04 propylene glycol AdvReac Unknown rash and Verified 06/07/23 11:09 flares up exzema ENVIRONMENTAL Allergy Unknown pollen, Uncoded 06/07/23 11:04 dogs, cats, trees - hay fever symtpoms Medications Home Medications Medication Instructions Recorded Confirmed Last Taken loratadine 10 mg tablet (Claritin) 10 mg PO HS 10/31/22 06/07/23 Unknown prenat.vits,kalin,xzn-vkbm-kcddg 1 tab PO HS 10/31/22 06/07/23 Unknown ondansetron HCl 4 mg tablet 4 mg PO Q8H PRN nausea and 02/01/23 06/07/23 Unknown vomiting #10 tabs azelastine 137 mcg (0.1 %) nasal 1 spray intranasal BID 02/03/23 06/07/23 Unknown spray aerosol montelukast 10 mg tablet 10 mg PO HS 02/03/23 06/07/23 Unknown (Singulair) Symbicort 160 mcg-4.5 2 puff inhalation BID #10.2 grams 04/20/23 06/07/23 Unknown mcg/actuation HFA aerosol inhaler (budesonide-formoterol) valacyclovir 500 mg tablet 500 mg PO BID #60 tabs 05/22/23 06/07/23 Unknown (Valtrex) albuterol sulfate 2.5 mg/3 mL 2.5 mg inhalation UD PRN asthma 06/07/23 06/07/23 Unknown (0.083 %) solution for nebulization albuterol sulfate 90 mcg/actuation 2 puff inhalation UD PRN asthma 06/07/23 06/07/23 Unknown aerosol inhaler budesonide 0.25 mg/2 mL suspension 0.25 mg inhalation UD PRN asthma 06/07/23 06/07/23 Unknown for nebulization (Pulmicort) cetirizine 10 mg tablet (Zyrtec) 10 mg PO HS 06/07/23 06/07/23 Unknown famotidine 40 mg tablet (Pepcid) 40 mg PO HS 06/07/23 06/07/23 Unknown Past Medical History Medical History (Updated 06/07/23 @ 11:55 by Trina Connelly PA-C) Anemia first iron infusion 06/06/23. 2 more scheduled. Asthma stable but still considered uncontrolled due to rescue inhaler daily; follows with Pulm () GERD (gastroesophageal reflux disease) worsened with preganncy History of IBS Hx of migraines Ovarian cyst hx SOB (shortness of breath) 06/02/23 - ed visit [facility] for sob. Imaging negative for PE. Found to have small area of chronic thrombophlebitis in the R greater saphenous vein Past Family History Family History Grandmother (Maternal) Depression Anxiety Factor V Leiden Hypertension Osteoporosis Grandmother (Paternal) Colorectal cancer Mother Factor V Leiden Thyroid disease Grandfather (Maternal) Hypertension Hypercholesteremia Past Surgical History Surgical History (Updated 06/07/23 @ 11:55 by Trina Connelly PA-C) H/O endoscopic sinus surgery Multiple H/O tooth extraction History of myringotomy ear tubes placed and removed History of tonsillectomy and adenoidectomy Hx of section c/s (09/01/18) d/t non-reassuring heart rates: Dosed epidural for procedure. Had repeat c/s 03/07/21 (SAB without issue) Social History Smoking Status: Never smoker Do You Dip or Chew Tobacco: No Hx Alcohol Use: No Hx Substance Use: No substance use type: does not use Lab Results Anesthesia Preop Results Results Anesthesia Widget: WBC 8.04 K/ul (4.8-10.8) 06/02/23 Hgb 10.8 g/dl (12.0-16.0) L 06/02/23 Hct 32.2 % (37.0-47.0) L 06/02/23 Plt 211 K/uL (130-400) 06/02/23 Na 135 mmol/L (136-145) L 06/02/23 K 3.6 mmol/L (3.5-5.1) 06/02/23 Cl 107 mmol/L (98-107) 06/02/23 CO2 21 mmol/L (21-32) 06/02/23 BUN 9 mg/dl (6-23) 06/02/23 Creat 0.46 mg/dl (0.6-1.2) L 06/02/23 Glucose Level 118 mg/dl (70-99(Fasting)) H 06/02/23 Urine Color Yellow 06/02/23 Urine Appearance Turbid (Clear) A 06/02/23 Urine pH 7.0 (4.5-7.5) 06/02/23 Urine Specific [place] 1.022 (1.000-1.030) 06/02/23 Urine Protein Negative (Negative) 06/02/23 Urine Glucose (UA) Negative (Negative) 06/02/23 Urine Ketones Trace (Negative) H 06/02/23 Urine Blood Negative (Negative) 06/02/23 Urine Nitrite Negative (Negative) 06/02/23 Urine Bilirubin Negative (Negative) 06/02/23 Urine Urobilinogen Negative (Negative) 06/02/23 Urine Leukocyte Esterase 2+ (Negative) H 06/02/23 Urine WBC (Auto) 1-5 /hpf (0-5) 06/02/23 Urine RBC (Auto) 0-4 /hpf (0-4) 06/02/23 Urine Hyaline Casts (Auto) 1-5 /lpf (0-5) 06/02/23 Urine Epithelial Cells (Auto) >30 /lpf (0-5) H 06/02/23 Urine Bacteria (Auto) Negative (Negative) 06/02/23 COVID-19 PCR NEGATIVE (Negative) 06/02/23 Testing Electrocardiogram Date: 06/02/23 Findings: + NSR @ (92bpm) Echocardiogram Date: 06/06/23 EF: 55-60% LV Function: normal Valvular Disease: + no significant valvular disease Other Testing 06/02/23 Chest CTA: 1. No pulmonary embolus. 2. Interseptal thickening and airspace opacities favor pulmonary edema. (note: Per Pulm note () 06/06/23: The original interpretation suggested interstitial edema although I reviewed that with Dr. Bhat of Radiology and he does not agree with that interpretation. We feel that it may be due to crowding of her lungs due to the size of her uterus and her asthma.) 06/04/23 Venous Doppler B/L LE: At the site of the previously noted thrombus at the confluence of the right great saphenous vein/common femoral vein, there is minimal residual thrombus, similar to prior exam. Otherwise no superficial or deep venous thrombus is seen.
--- NOTE | 2023-06-14 11:38 | History & Physical Report ---
Date of Service June 14, 2023 Assessment & Plan (1) History of 2 sections: Plan: 32 yo at 39 2/7 wga presents for preop to planned CS -Discussed indications, risks, benefits, alternatives with risks including infection, bleeding, injury to adjacent structures (bowel, bladder, ureters, blood vessels, nerves, baby), possible need for blood transfusion and/or life saving hysterectomy, VTE. Consent reviewed in detail w/ pt and signed after all questions answered to her satisfaction. Received ancef before without issue -had heme bloodwork and had ?superficial clot that was seen during workup of her symptoms before. Protein S levels low but I believe can have impact on dx. Will send message to heme to see if they think any anticoagulation is needed afterward History of Present Illness Chief Complaint: preop Primary Care Provider: Michael Matthews MD 32 yo at 39 2/7 wga presents for preop to planned repeat CS tomoorrow. +FM; denies regular ctx, LOF, VB. Since getting iron infusions, SOB, restless legs and fatigue have improved. Did have normal maternal echo due to symptoms recently PNI: CSx2 severe asthma HSV Past machine fitter Hx: 2017 pLTCS 2020 rLTCS G3 current Hx HSV Allergies Allergy/AdvReac Type Severity Reaction Status Date / Time amoxicillin [From Augmentin] Allergy Unknown Rash - see Verified 06/14/23 10:09 notes below clavulanic acid Allergy Unknown rash Verified 06/14/23 10:09 propylene glycol AdvReac Unknown rash and Verified 06/14/23 10:09 flares up exzema ENVIRONMENTAL Allergy Unknown pollen, Uncoded 06/07/23 11:04 dogs, cats, trees - hay fever symtpoms Home Medications Medication Instructions Recorded Confirmed Type loratadine 10 mg tablet (Claritin) 10 mg PO HS 10/31/22 06/14/23 History prenat.vits,kalin,qab-nblq-ytssj 1 tab PO HS 10/31/22 06/14/23 History ondansetron HCl 4 mg tablet 4 mg PO Q8H PRN nausea and 02/01/23 06/14/23 Rx vomiting #10 tabs azelastine 137 mcg (0.1 %) nasal 1 spray intranasal BID PRN Sinus 02/03/23 06/14/23 History spray aerosol Symptoms montelukast 10 mg tablet 10 mg PO HS 02/03/23 06/14/23 History (Singulair) Symbicort 160 mcg-4.5 2 puff inhalation BID #10.2 grams 04/20/23 06/14/23 Rx mcg/actuation HFA aerosol inhaler (budesonide-formoterol) valacyclovir 500 mg tablet 500 mg PO BID #60 tabs 05/22/23 06/14/23 Rx (Valtrex) albuterol sulfate 2.5 mg/3 mL 2.5 mg inhalation UD PRN asthma 06/07/23 06/14/23 History (0.083 %) solution for nebulization albuterol sulfate 90 mcg/actuation 2 puff inhalation UD PRN asthma 06/07/23 06/14/23 History aerosol inhaler budesonide 0.25 mg/2 mL suspension 0.25 mg inhalation UD PRN asthma 06/07/23 06/14/23 History for nebulization (Pulmicort) cetirizine 10 mg tablet (Zyrtec) 10 mg PO HS 06/07/23 06/14/23 History famotidine 40 mg tablet (Pepcid) 40 mg PO HS 06/07/23 06/14/23 History fluticasone propionate 50 2 spray intranasal DAILY 06/12/23 06/14/23 History mcg/actuation nasal spray,suspension Patient History Medical History (Updated 06/13/23 @ 16:14 by Dulce Gerarod, BERNARD) Anemia first iron infusion 06/06/23. 2 more scheduled. Asthma stable but still considered uncontrolled due to rescue inhaler daily; follows with Pulm () Blood clot in vein Diagnosed superficial blood clot 06/02/2023 Follow up 06/04/23 with no change reported GERD (gastroesophageal reflux disease) worsened with preganncy History of IBS Hx of migraines Ovarian cyst hx SOB (shortness of breath) 06/02/23 - ed visit [facility] for sob. Imaging negative for PE. 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 Had repeat c/s 03/07/21 (SAB without issue) Family History Grandmother (Maternal) Depression Anxiety Factor V Leiden Hypertension Osteoporosis Grandmother (Paternal) Colorectal cancer Mother Factor V Leiden Thyroid disease Grandfather (Maternal) Hypertension Hypercholesteremia Social History Smoking Status: Never smoker Second Hand Exposure: No; Do You Dip or Chew Tobacco: No; Hx Alcohol Use: No Hx Substance Use: No Preferred Language: Tamazight Communication Ability: Effective Restaurant Crew Member Required: No Beliefs That Will Affect Care: None marital status: marital status details: Sotero [phone] Current Living Situation: Spouse Current Living Situation Comment: lives with spouse and children, 2 step children, 2 dogs. 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 NON-REACTIVE (NON-REACTIVE) 11/02/22 Hepatitis C Antibody (EIA) NON-REACTIVE (NON-REACTIVE) 11/02/22 HIV (1&2) Ab and P24 Ag, 4th GenerE Neg (Neg) 08/06/20 HIV (1&2) Ag and Ab Confirmation NON-REACTIVE (NON-REACTIVE) 11/02/22 Glucose 1 Hour 50 gm Load 132 mg/dl (70-130) H 04/04/23 OB Optional Labs: Chlamydia trachomatis RNA Not Detected (NotDetected) 11/02/22 Neisseria gonorrhoeae RNA Not Detected (NotDetected) 11/02/22 Labs Reviewed: low risk cfdna - sln declined afp--ak declines [facility] Diagnostic Findings 05/22/23 EFW 44%, AC 32%, ant plac Coding Level of Care Code None Diagnoses History of 2 sections Z98.891
[~2023-06-15 07:29] MED LIST changes: +LACTATED RINGER'S 1,000 ML IV SCH
[2023-06-15] MEDS ORDERED: LIDOCAINE 1% LOCAL 20 ML VIAL INFIL PRN (08:19)
[2023-06-15] MEDS ORDERED: OXYTOCIN 10 UNITS/ML VIAL ONE (08:31)
[2023-06-15] MEDS ORDERED: PHENYLEPHRINE 100MCG/ML 5ML SYR ONE (08:31)
[2023-06-15] MEDS ORDERED: MoRPHine SULFATE PF 1 MG/ML 10 ML AMP/VIAL ONE (08:31)
[2023-06-15] MEDS ORDERED: ONDANSETRON INJ 2 MG/ML 2 ML VIAL ONE (08:31)
[2023-06-15] MEDS ORDERED: fentaNYL citrate PF 100 MCG/2 ML VIAL ONE (08:32)
[2023-06-15] MEDS ORDERED: LACTATED RINGER'S 1,000 ML IV SCH (08:45)
[2023-06-15] MEDS ORDERED: ALBUTEROL HFA 8 GM INHALER INH PRN ×2 (08:57→21:30)
--- NOTE | 2023-06-15 09:07 | History & Physical Bridge Note ---
Date of Service June 15, 2023 History & Physical Bridge Note I have examined the patient, reviewed the History & Physical and in the interval since the performance of the History & Physical I have noted the following changes of clinical significance: no changes noted. Heme recommends lovenox 40mg/d x 6wks for ppx
[2023-06-15 09:10] LABS: Hematocrit (blood only) 32.2 % (37.0-47.0); Hemoglobin 10.7 g/dl (12.0-16.0); Mean Corpuscular Hemoglobin 29.5 pg (25.0-34.0); Mean Corpuscular Hgb Conc 33.2 g/dL (32.0-36.0); Mean Corpuscular Volume 88.7 fL (80.0-100.0); Mean Platelet Volume 11.8 fL (9.4-12.4); Platelet Count 217 K/uL (130-400); RDW Standard Deviation 47.1 fL (36.4-46.3); Red Blood Count 3.63 M/uL (4.20-5.40); White Blood Count 9.63 K/ul (4.8-10.8)
[2023-06-15] MEDS ORDERED: ePHEDrine sulfate 50 MG/ML AMP IV PRN (10:06)
[2023-06-15] MEDS ORDERED: NALOXONE HCL 0.4 MG/1 ML VIAL/CARP IV PRN (10:06)
[2023-06-15] MEDS ORDERED: diphenhydrAMINE 50 MG/ML VIAL IV PRN (10:06)
[2023-06-15] MEDS ORDERED: ONDANSETRON INJ 2 MG/ML 2 ML VIAL IV PRN (10:06)
[2023-06-15] MEDS ORDERED: MoRPHine SULFATE PF 1 MG/ML 10 ML AMP/VIAL INT SPINAL ONE (10:06)
[2023-06-15] MEDS ORDERED: NALOXONE HCL 1 MG in SODIUM CHLORIDE 0.9% 1,000 ML IV PRN (10:06)
[2023-06-15] MEDS ORDERED: NALOXONE HCL 0.08 MG in SYRINGE 1.8 ML IV PRN (10:06)
[2023-06-15] MEDS ORDERED: PROMETHAZINE HCL 6.25 MG in SODIUM CHLORIDE 0.9% 50 ML IV PRN (10:06)
[2023-06-15] MEDS ORDERED: LACTATED RINGER'S 500 ML IV PRN (10:06)
[2023-06-15] MEDS ORDERED: HYDROmorphone INJ 0.5 MG/0.5 ML SYR IV PRN (10:06)
[2023-06-15] MEDS ORDERED: SODIUM CHLORIDE 0.9% 1,000 ML IV SCH (10:15)
[2023-06-15] MEDS ORDERED: NO NARCOTICS OR SEDATIVES SCH (10:15)
[2023-06-15] MEDS ORDERED: DC INTRASPINAL MORPHINE SCH (10:15)
[2023-06-15] MEDS ORDERED: diphenhydrAMINE 50 MG/ML VIAL ONE (10:29)
[2023-06-15] MEDS ORDERED: MAGNESIUM HYDROXIDE SUSP 30 ML UDC PO PRN (11:01)
[2023-06-15] MEDS ORDERED: HYDROCORTISONE ACETATE 25 MG SUPP PR PRN (11:01)
[2023-06-15] MEDS ORDERED: DIPHTHERIA/TETANUS/PERTUSSIS Vaccine (Tdap, Age 7+yrs) 0.5mL SYR/VL IM ONE (11:01)
[2023-06-15] MEDS ORDERED: BENZOCAINE 20% SPRY 85 APPLN/85 GM CAN EXT PRN (11:01)
[2023-06-15] MEDS ORDERED: SENNA 8.6 MG TAB PO PRN (11:01)
--- NOTE | 2023-06-15 11:10 | Operative Report ---
PG Post Operative Report Pre & Post Diagnosis Operation Date: 06/15/23 09:20 Pre-Op Diagnosis: Single intrauterine at 39 3/7 wga History of Section x2 Severe Asthma Post-Op Diagnosis: Same as pre-op I identified the patient and participated in the time-out.: Yes Procedure Operation Date: 06/15/23 09:20 Actual Procedures p Repeat Low Transverse Section (Deliery of Baby Through Abdominal Incision); Live male child at 1022(Bilateral) - Arelis Thompson MD Surgeon Arelis Thompson MD Automated Process Operator MD Brigette Estimated Blood Loss 500 Findings Consistent with Post-Op Diagnosis Thin lower uterine segment that was noted to extend inferiorly about 1cm from hysterotomy during delivery in the middle, not so thin that would consider a window but appreciable. Dense fascial adhesions noted. Normal appearing bilateral fallopian tubes and ovaries. Viable male infant with APGARs of 8 and 9. Fluids 1300cc crystalloid, UOP 200cc by muniz draining clear urine Specimens Placenta Drains Muniz draining clear urine Anesthesia Type Spinal Complications none Disposition Accompanied Patient To Recovery: Yes Disposition: L&D Indications 32 yo at 39 3/7 wga presents for scheduled repeat CS Description of Procedure The patient was taken to the operating room after consents were ensured. The patient was properly identified. Spinal anesthesia was obtained without difficulty. The patient was placed in a dorsal supine position with left lateral tilt, then prepped and draped in normal sterile fashion. Surgical time out was performed. Ancef was given for prophylaxis. Anesthesia was tested to ensure ad equate surgical levels. Pfannenstiel skin incision was performed and carried down to the underlying fascia with a knife. The fascia was then nicked in the midline and extended laterally with pickups and Cueva scissors. Superior portion of the fascia was grasped with Kochers x2 and elevated off the underlying rectus muscles using blunt dissection. Inferior portion of the fascia was then grasped with Leann clamps x2 and also elevated off the underlying muscles with blunt dissection. Midline was identified. The peritoneum was then entered and extended to provide adequate room for delivery of baby. A hand was inserted into the abdomen, uterus was noted to be clear of adhesions. Bladder blade was inserted, bladder flap was created in the usual fashion. A low transverse uterine incision was made in the uterus and extended bluntly in a superior to inferior fashion. Amniotomy was made with clear fluid at the time of rupture. head was grasped and elevated through the hysterotomy in an atraumatic fashion. The baby delivered in ROBERT position, nuchal cord x 2 was reduced. Remainder of the body delivered without incident. Nose and mouth were bulb suctioned on the surgical field. The cord was double clamped and cut, baby was handed off to awaiting pediatrics staff. Cord segment and blood were obtained. Placenta was then expressed from the uterus. The uterus was exteriorized. Several passes were made inside the uterus to remove the remaining membranes. Attention was then turned to the hysterotomy, which was then closed with a running locked suture of 0 Vicryl on a CTX needle after the inferior extension was repaired in a running locked fashion with 0 Vicryl. An imbricating layer was then performed using 0-Monocryl. An area of bleeding in the hysterotomy just right lateral to the extension was made hemostatic with figure of eight stitches. There was noted to be good hemostasis. The posterior cul-de-sac was then inspected and cleaned of clot and debris. The hysterotomy was again inspected and noted to be hemostatic. The uterus was returned to the abdomen. The right and left pericolic gutters were cleaned of all clot and debris. The hysterotomy was again noted to be hemostatic. Space of Retzius was noted to be hemostatic. The fascia was then closed with a running suture of 0 Vicryl on a CT1 needle. Subcutaneous tissue was copiously irrigated and noted to be hemost atic. Subcutaneous tissue was re-approximated using 2-0 plain gut. The skin was then closed with a running suture of 3-0 Monocryl in a subcuticular fashion. At termination of the procedure, fundal pressure was applied and a moderate amount of lochia was expressed. Pressure dressing was applied to the patient. She tolerated the procedure well. All sponge, needle, instrument counts were correct x 2. I attest to the content of the Intraoperative Record and any orders documented therein. Any exceptions are noted below. OB Procedure Charges 48238
--- NOTE | 2023-06-15 11:47 | Anesthesiology Progress Note ---
Date of Service June 15, 2023 Anesthesia Post Procedure Vital Signs Vital Signs: Temp Pulse Resp BP Pulse Ox 06/15/23 11:30 20 06/15/23 11:20 20 06/15/23 11:10 36.6 C 20 06/15/23 07:40 36.9 C 20 06/15/23 11:45 96 H 94 06/15/23 11:42 85 99/55 L 06/15/23 11:40 89 97 06/15/23 11:35 89 96 06/15/23 11:32 96 H 105/55 L 06/15/23 11:30 84 97 06/15/23 11:25 93 H 97 06/15/23 11:22 87 102/57 L 06/15/23 11:20 93 H 97 06/15/23 11:15 96 H 96 06/15/23 11:12 94 H 94 06/15/23 11:10 95 H 99/53 L 96 06/15/23 07:38 88 118/70 Transfer of Care Handoff Completed per policy Notes Mental Status: alert / awake / arousable and participated in evaluation Patient Amnestic to Procedure: No Nausea / Vomiting: adequately controlled Pain: adequately controlled Airway Patency, RR, SpO2: stable & adequate BP & HR: stable & adequate Hydration State: stable & adequate Neuraxial Anesthesia: was administered and sensory block is resolving Anesthetic Complications: no major complications apparent and Pt Satisfied with anesthetic care
[2023-06-15] MEDS: NALBUPHINE HCL INJ 10 MG/ML AMP IV PRN ×3 (11:53→17:47)
[2023-06-15] MEDS: KETOROLAC 30 MG/ML VIAL IV PRN ×2 (12:15→17:40)
[2023-06-15] MEDS ORDERED: ACETAMINOPHEN 1,000 MG/100 ML VIAL IV STA (12:49)
[2023-06-15] MEDS: SIMETHICONE 80 MG CHEW PO SCH ×4 (13:51→20:14)
[2023-06-15] MEDS: OXYTOCIN 20 UNITS in LACTATED RINGER'S 1,000 ML IV SCH ×2 (14:02→22:31)
[2023-06-15] MEDS: DOCUSATE SODIUM 100 MG CAP PO SCH (20:14)
[2023-06-15] MEDS ORDERED: BUDESONIDE 0.25 MG/2 ML VIAL (PULMICORT) INH PRN (20:53)
[2023-06-15] MEDS ORDERED: ALBUTEROL 0.083% NEBU SOLN 3 ML VIAL INH PRN (20:53)
[2023-06-15] MEDS ORDERED: AZELASTINE HCL 0.1% NASAL 200 SPRAYS/27,400 MCG BTL NS PRN (20:53)
[2023-06-15] MEDS ORDERED: ACETAMINOPHEN 1,000 MG/100 ML VIAL IV PRN (20:55)
[2023-06-15] MEDS: LORATADINE 10 MG TAB PO SCH (21:48)
[2023-06-15] MEDS: MONTELUKAST SODIUM 10 MG TABLET PO SCH (21:48)
[2023-06-15] MEDS: FLUTICASONE PROPIONATE NA SPR 16 GM BTL SCH (21:48)
[2023-06-15] MEDS: CETIRIZINE HCL 10 MG TABLET PO SCH (21:49)
[2023-06-16] MEDS: NALBUPHINE HCL INJ 10 MG/ML AMP IV PRN (00:02)
[2023-06-16] MEDS: KETOROLAC 30 MG/ML VIAL IV PRN (00:03)
[2023-06-16] MEDS ORDERED: diphenhydrAMINE 50 MG/ML VIAL IV PRN (04:06)
[2023-06-16] MEDS ORDERED: ONDANSETRON INJ 2 MG/ML 2 ML VIAL IV PRN (04:06)
[2023-06-16] MEDS ORDERED: PROMETHAZINE HCL 25 MG in SODIUM CHLORIDE 0.9% 50 ML IV PRN (04:06)
[2023-06-16] MEDS ORDERED: diphenhydrAMINE Capsule 25 MG CAP PO PRN (04:06)
[2023-06-16] MEDS ORDERED: KETOROLAC 30 MG/ML VIAL IV PRN (04:06)
[2023-06-16] MEDS: oxyCODONE/ACETAMINOPHEN 5mg/325mg TAB PO PRN ×4 (05:04→19:48)
[2023-06-16] MEDS ORDERED: ceFAZolin 2000MG 2,000 MG/15 ML SYR IV SCH (06:00)
[2023-06-16] MEDS: LACTATED RINGER'S 1,000 ML IV SCH ×3 (07:31→12:43)
[2023-06-16 07:37] LABS: Hemoglobin 10.5 g/dl (12.0-16.0)
[2023-06-16] MEDS: PRENATAL VITAMIN 1 TAB PO SCH (07:46)
[2023-06-16] MEDS: DOCUSATE SODIUM 100 MG CAP PO SCH ×2 (07:46→19:49)
[2023-06-16] MEDS: SIMETHICONE 80 MG CHEW PO SCH ×4 (07:46→19:48)
[2023-06-16] MEDS: IBUPROFEN 600 MG TAB PO PRN ×4 (07:47→22:27)
[2023-06-16] MEDS: FERROUS SULFATE 325 MG TAB PO SCH (07:47)
--- NOTE | 2023-06-16 08:21 | Obstetrical Progress Note ---
Date of Service June 16, 2023 Assessment & Plan (1) Encounter for care and examination after delivery: Day 1 status post repeat . Patient doing well. We will start Lovenox this a.m. Routine OB care Subjective Ambulation: ambulating normally Voiding: no voiding problems Passing Gas:: Yes Diet Tolerance:: regular diet Lochia:: Moderate Feeding Type:: breast feeding Physical Exam Constitutional WD/WN, vitals as above Respiratory normal respiratory effort; no respiratory distress and no labored breathing Cardiovascular Extremities: no calf tenderness Gastrointestinal (Abdomen) Inspection/Auscultation: abdomen normal to inspection; abdomen not distended Percussion/Palpation: abdomen soft; abdomen nontender, no guarding and abdomen not rigid Genitourinary OB Exam Abdomen: + fundal height Fundus: + firm and + relation to umbilicus (Below); not tender or not boggy Results & Data Vital Signs (Past 12 Hours) Vital Signs Temp Pulse Resp BP Pulse Ox O2 Del Method 06/16/23 04:40 36.5 C 90 20 99/66 L 100 Room Air 06/16/23 03:40 16 95 06/16/23 02:20 18 98 06/16/23 01:21 18 94 06/16/23 00:45 18 94 06/15/23 23:40 18 97 06/15/23 23:40 36.8 C 85 18 106/67 97 Room Air 06/15/23 22:15 18 95 06/15/23 21:00 18 96 06/15/23 20:00 18 95 06/15/23 21:50 18 97
[2023-06-16] MEDS ORDERED: FLUTICASONE/VILANTEROL 200/25MCG 14 PUFFS/INHALER INH SCH (09:00)
[2023-06-16] MEDS: ENOXAPARIN INJ 40 MG/0.4 ML SYR SQ SCH (10:07)
[2023-06-16] MEDS: LORATADINE 10 MG TAB PO SCH (19:49)
[2023-06-16] MEDS: CETIRIZINE HCL 10 MG TABLET PO SCH (19:49)
[2023-06-16] MEDS: MONTELUKAST SODIUM 10 MG TABLET PO SCH (19:50)
[2023-06-16] MEDS ORDERED: bisacodyL 5 MG TABEC PO SCH (20:00)
[2023-06-17] MEDS: oxyCODONE/ACETAMINOPHEN 5mg/325mg TAB PO PRN ×3 (00:34→10:22)
--- NOTE | 2023-06-17 07:55 | Obstetrical Progress Note ---
Date of Service June 17, 2023 Assessment & Plan (1) Encounter for care and examination after delivery: 32 [facility] doing [facility] -Meeting all pp milestones -A+/rubella immune/ -f/u 6 weeks for appt, stable for dc home today. Will send rx for lovenox 40mg/d per heme, has f/u with them in 2 wks Subjective Ambulation: ambulating normally Voiding: no voiding problems Passing Gas:: Yes Diet Tolerance:: regular diet Lochia:: Small Feeding Type:: breast feeding Pain well managed with medication Review of Systems Denies fevers, chills, n/v, WARREN, CP, SOB Physical Exam Constitutional WD/WN, vitals as above no acute distress Respiratory normal respiratory effort, lungs clear to auscultation Cardiovascular RRR, no murmur, no edema Gastrointestinal (Abdomen) Percussion/Palpation: abdomen soft; abdomen nontender fundus firm at umbilicus and NT incision c/d/i Musculoskeletal BLE symmetric, nonerythematous, nontender Results & Data Vital Signs (Past 12 Hours) Vital Signs Temp Pulse Resp BP O2 Del Method 06/17/23 00:37 97.7 F 85 16 102/69 Room Air
[2023-06-17] MEDS: PRENATAL VITAMIN 1 TAB PO SCH (08:32)
[2023-06-17] MEDS: IBUPROFEN 600 MG TAB PO PRN (08:32)
[2023-06-17] MEDS: SIMETHICONE 80 MG CHEW PO SCH (08:32)
[2023-06-17] MEDS: FERROUS SULFATE 325 MG TAB PO SCH ×2 (08:32→08:37)
[2023-06-17] MEDS: DOCUSATE SODIUM 100 MG CAP PO SCH (08:33)
[2023-06-17] MEDS: FLUTICASONE PROPIONATE NA SPR 16 GM BTL SCH (08:33)
[2023-06-17] MEDS: ENOXAPARIN INJ 40 MG/0.4 ML SYR SQ SCH (08:34)
[2023-06-17] MEDS ORDERED: bisacodyL 10 MG SUPP PR PRN (11:01)
--- NOTE | 2023-06-19 09:06 | Discharge Summary ---
Date of Service June 19, 2023 Admission HPI Per Admitting Provider 32 yo at 39 2/7 wga presents for preop to planned repeat CS tomoorrow. +FM; denies regular ctx, LOF, VB. Since getting iron infusions, SOB, restless legs and fatigue have improved. 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: 2017 pLTCS 2020 rLTCS G3 current Hx HSV Admission Exam (Per Admitting) Constitutional WD/WN, vitals as above no acute distress Respiratory normal respiratory effort, lungs clear to auscultation Cardiovascular RRR, no murmur, no edema Gastrointestinal (Abdomen) Percussion/Palpation: abdomen soft; abdomen nontender Genitourinary OB Exam Abdomen: + heart tones (140s) Discharge Data Consultations 06/15/23 08:19 Consult Anesthesiology Stat Procedures Performed Operation Date: 06/15/23 09:20 Actual Procedures p Section (Deliery of Baby Through Abdominal Incision); Live male child at 1022(Bilateral) - Arelis Thompson MD Hospital Course (1) Encounter for care and examination after delivery: see operative report for delivery details. She was started on lovenox 40mg/d per heme and discharged home on POD2 with 6wks of lovenox. Has f/u with heme in 2 wks Coding Level of Care Code None Diagnoses Encounter for care and examination after delivery Z39.2
--- NOTE | 2023-06-23 12:02 | Coding Query ---
To promote full compliance with coding requirements relating to patient care, provider participation is requested in all cases of financial services consultant uncertainty. Please assist us with the question(s) below: Coding Question(s): The diagnosis(es) below was documented in the (H&P, progress notes) then subsequently fell off all further documentation. Please indicate if it is still a possible diagnosis or ruled out. Physician's Response(s): SUPERFICIAL CLOT IN VEIN ( ) Diagnosed and POA ( ) Diagnosed and not POA ( ) Ruled out ( X ) Other (please specify) - diagnosed prior to admission, to be managed by pcp outpt MTDD
== END 2023-06-17 10:45 | disposition home or self-care (01) | DRG 788 ==
LOC: 4S1 07:29 → EDSTATUS 07:30 → 4E2 15:06